=== PATIENT | male | born 1935 | race Caucasian/White ===

== ENCOUNTER 2017-04-20 15:28 | Emergency (ER) | payer OTHER, MEDICARE, BC ==
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
--- NOTE | 2017-04-20 16:34 | CT ---
Head CT Technique: Multiple axial sections through the brain were obtained. Intravenous contrast was not utilized. Comparison: No prior intracranial imaging. Findings: Ventricles along with basal cisterns and sulci over the convexities are moderately prominent. Mild diminished density is noted within the subcortical and periventricular white matter compatible with small vessel ischemic demyelination change. No evidence of intracranial hemorrhage is seen. No midline shift or mass effect is seen. Bone window settings were reviewed which shows mild mucosal thickening within the ethmoid sinuses. No acute calvarial abnormality is seen. Impression: 1. Senescent change as noted above. Minimal sinus findings which are felt to be incidental. 2. No acute intracranial abnormality is seen. No skull fracture is identified. Diagnostic code #2
--- NOTE | 2017-04-23 07:40 | CR ---
Left shoulder: Three views of the left shoulder were obtained. Comparison: No prior shoulder study. Joint space narrowing is noted within the acromioclavicular joint. Glenohumeral joint appears within normal limits. No acute fracture, dislocation or other bony abnormality is seen. Impression: 1. Slight degenerative change. No acute abnormality is identified on the left shoulder study. Diagnostic code #2
--- NOTE | 2017-04-23 07:40 | CR ---
Left femur: AP and lateral views of the left femur were obtained. Mild vascular calcification is seen. Joint space within the left hip is preserved. Joint spaces within the left knee are preserved. Minimal osteophytes are noted off the medial and lateral tibia from the knee. Small osteophyte is noted off the medial femoral head. No acute fracture or other bony abnormality is seen. Impression: 1. Incidental findings as noted above. Nothing acute is appreciated on two-view left femur study. Diagnostic code #2
== END 2017-04-20 17:10 | disposition home or self-care (01) ==
LOC: JD.ED 15:28
DX: S43.102A Unspecified dislocation of left acromioclavicular joint, initial encounter (principal); E11.9 Type 2 diabetes mellitus without complications; Z79.84 Long term (current) use of oral hypoglycemic drugs; Z79.899 Other long term (current) drug therapy; Z87.891 Personal history of nicotine dependence; V53.6XXA Passenger in pick-up truck or van injured in collision with car, pick-up truck or van in traffic accident, initial encounter; Y92.415 Exit ramp or entrance ramp of street or highway as the place of occurrence of the external cause
CPT/HCPCS: 70450; 70450-26; 73030-26-LT; 73030-LT; 73552-26-LT; 73552-LT; 99283; 99285-25

== ENCOUNTER 2019-06-05 08:20 | Day surgery (SDC) | payer MEDICARE, OTHER ==
[~2019-06-05 08:20] MED LIST: Cefuroxime 10 MG/ML SYRINGE EYELF SCH; Lidocaine 1% PF 2 ML SDV INJECT SCH; Pilocarpine 4% Ophth Soln 15 ML Bot EYELF SCH
[2019-06-05] MEDS: Polymyxin B/Trimethoprim 10 ML Bottle EYELF SCH ×3 (08:54→10:41)
[2019-06-05] MEDS: Brimonidine 0.2% Ophth Soln 5 ML Bottle EYELF SCH ×3 (09:00→10:41)
[2019-06-05] MEDS: Phenylephrine 2.5% Ophth Soln 2 ML Bot EYELF SCH ×5 (09:05→10:23)
--- NOTE | 2019-06-05 09:06 | PCM.PREANE ---
Preanesthetic Assessment - Anesthesia/Transfusion/Family Hx Anesthesia History: Prior Anesthesia Without Reaction Family History of Anesthesia Reaction: No Transfusion History: No Prior Transfusion(s) - Review of Systems General: No Symptoms Pulmonary: No Symptoms Cardiovascular: No Symptoms Gastrointestinal: No Symptoms Neurological: No Symptoms Other: Reports: None - Physical Assessment NPO Status Date: 06/04/19 NPO Status Time: 18:00 ASA Class: 2 Mental Status: Alert & Oriented x3 Airway Class: Mallampati = 1 Dentition: Reports: Missing Tooth/Teeth Thyro-Mental Finger Breadths: 3 Mouth Opening Finger Breadths: 3 ROM/Head Extension: Full Lungs: Clear to Auscultation, Normal Respiratory Effort, Decreased Breath Sounds (RLL slightly decreased) - Allergies Allergies/Adverse Reactions: Allergies Allergy/AdvReac Type Severity Reaction Status Date / Time No Known Allergies Allergy Verified 06/04/19 16:47 - Acknowledgements Anesthesia Type Planned: MAC Pt an Appropriate Candidate for the Planned Anesthesia: Yes Alternatives and Risks of Anesthesia Discussed w Pt/Guardian: Yes Pt/Guardian Understands and Agrees with Anesthesia Plan: Yes PreAnesthesia Questionnaire HEENT History: Reports: Cataract Cardiovascular History: Reports: CAD, High Cholesterol, Hypertension, [place], SOB on Exertion Respiratory History: Reports: None, Other (See Below) Gastrointestinal History: Reports: GERD Genitourinary History: Reports: None Musculoskeletal History: Reports: Arthritis Neurological History: Reports: None Endocrine/Metabolic History: Reports: Diabetes, Type II, Other (See Below) Other Endocrine/Metabolic History: neuropathy - Past Surgical History HEENT Surgical History: Reports: Other (See Below) (nose) GI Surgical History: Reports: Hernia, Inguinal - SUBSTANCE USE Smoking Status *Q: Former Smoker - HOME MEDS Home Medications: Home Meds Gabapentin [Neurontin] 300 mg PO QID 04/20/17 [History] Omeprazole 20 mg PO BID 04/20/17 [History] Propranolol [Inderal] 20 mg PO TID 04/20/17 [History] Simvastatin [Zocor] 20 mg PO DAILY 04/20/17 [History] glipiZIDE [Glucotrol] 5 mg PO BID 04/20/17 [History] metFORMIN [Glucophage XR] 500 mg PO BID 04/20/17 [History] lisinopriL [Lisinopril] 10 mg PO DAILY 06/04/19 [History] - CURRENT (IN HOUSE) MEDS Current Meds: Current Medications Brimonidine Tartrate (Alphagan 0.2% Ophth Soln) 0 ml EYELF ASDIRECTED TIMI Stop: 06/05/19 18:00 Last Admin: 06/05/19 09:00 Dose: 1 drop Cefuroxime Sodium (Zinacef) 0 mg EYELF ASDIRECTED TIMI Stop: 06/05/19 18:00 Lidocaine HCl (Xylocaine-Mpf 1%) 0 ml INJECT ASDIRECTED TIMI Stop: 06/05/19 18:00 Phenylephrine HCl (Riley-Synephrine 2.5% Ophth Soln) 0 ml EYELF ASDIRECTED TIMI Stop: 06/05/19 18:00 Pilocarpine HCl (Pilocar 4% Ophth Soln) 0 ml EYELF ASDIRECTED TIMI Stop: 06/05/19 18:00 Polymyxin/Trimethoprim Sulfate (Polytrim Ophth Soln) 0 ml EYELF ASDIRECTED TIMI Stop: 06/05/19 18:00 Last Admin: 06/05/19 08:54 Dose: 1 drop Tetracaine HCl (Tetracaine 0.5% Steri-Unit Robyn) 0 ml EYELF ASDIRECTED TIMI Stop: 06/05/19 18:00 Tropicamide (Mydriacyl 1% Ophth Soln) 0 ml EYELF ASDIRECTED TIMI Stop: 06/05/19 18:00
[2019-06-05] MEDS: Tropicamide 1% Ophth Soln 15 ML Bottle EYELF SCH ×4 (09:10→09:57)
[2019-06-05] MEDS: Tetracaine HCl/PF 0.5% 4 ML Bottle EYELF SCH ×2 (10:13→10:29)
--- NOTE | 2019-06-05 10:44 | PCM48HPAN ---
Post Anesthesia Note - EVALUATION WITHIN 48HRS OF ANESTHETIC Vital Signs in Normal Range: Yes Patient Participated in Evaluation: Yes Respiratory Function Stable: Yes Airway Patent: Yes Cardiovascular Function Stable: Yes Hydration Status Stable: Yes Pain Control Satisfactory: Yes Nausea and Vomiting Control Satisfactory: Yes Mental Status Recovered: Yes Vital Signs: Last Vital Signs Temp 36.8 C 06/05/19 08:45 Pulse 55 L 06/05/19 08:45 Resp 16 06/05/19 08:45 BP 177/78 H 06/05/19 08:45 Pulse Ox 96 06/05/19 08:45
== END 2019-06-05 10:54 | disposition home or self-care (01) ==
LOC: JD.SDS 08:20
PROVIDERS: ATTEND Ophthalmology
DX: E11.36 Type 2 diabetes mellitus with diabetic cataract (principal); H25.813 Combined forms of age-related cataract, bilateral; H02.834 Dermatochalasis of left upper eyelid; H02.831 Dermatochalasis of right upper eyelid; H16.223 Keratoconjunctivitis sicca, not specified as Sjogren's, bilateral; H16.103 Unspecified superficial keratitis, bilateral; E78.00 Pure hypercholesterolemia, unspecified; I10 Essential (primary) hypertension; Z87.891 Personal history of nicotine dependence
CPT/HCPCS: 66984; J0697; J2001; C1780

== ENCOUNTER 2019-08-05 08:26 | Day surgery (SDC) | payer MEDICARE, OTHER ==
[~2019-08-05 08:26] MED LIST changes: -Cefuroxime 10 MG/ML SYRINGE EYELF SCH; +Cefuroxime 10 MG/ML SYRINGE EYERT SCH; -Pilocarpine 4% Ophth Soln 15 ML Bot EYELF SCH; +Pilocarpine 4% Ophth Soln 15 ML Bot EYERT SCH
[2019-08-05] MEDS: Polymyxin B/Trimethoprim 10 ML Bottle EYERT SCH ×4 (09:08→10:52)
[2019-08-05] MEDS: Brimonidine 0.2% Ophth Soln 5 ML Bottle EYERT SCH ×3 (09:15→10:52)
--- NOTE | 2019-08-05 09:21 | PCM.PREANE ---
Preanesthetic Assessment - Anesthesia/Transfusion/Family Hx Anesthesia History: Prior Anesthesia Without Reaction Transfusion History: No Prior Transfusion(s) - Review of Systems General: No Symptoms Pulmonary: No Symptoms Cardiovascular: No Symptoms Gastrointestinal: No Symptoms Neurological: No Symptoms Other: Reports: None - Physical Assessment NPO Status Date: 08/04/19 NPO Status Time: 18:00 Vital Signs: Last Vital Signs Temp 98.2 F 08/05/19 09:00 Pulse 56 L 08/05/19 09:00 Resp 16 08/05/19 09:00 BP 152/74 H 08/05/19 09:00 Pulse Ox 96 08/05/19 09:00 Height: 1.68 m Weight: 64.41 kg ASA Class: 2 Mental Status: Alert & Oriented x3 Airway Class: Mallampati = 1 Dentition: Reports: Edentulous Thyro-Mental Finger Breadths: 3 Mouth Opening Finger Breadths: 3 ROM/Head Extension: Full Lungs: Clear to Auscultation, Normal Respiratory Effort Cardiovascular: Regular Rate, Regular Rhythm - Allergies Allergies/Adverse Reactions: Allergies Allergy/AdvReac Type Severity Reaction Status Date / Time No Known Allergies Allergy Verified 06/04/19 16:47 - Acknowledgements Anesthesia Type Planned: MAC Pt an Appropriate Candidate for the Planned Anesthesia: Yes Alternatives and Risks of Anesthesia Discussed w Pt/Guardian: Yes Pt/Guardian Understands and Agrees with Anesthesia Plan: Yes PreAnesthesia Questionnaire HEENT History: Reports: Cataract, Hard of Hearing (hearing aids) Cardiovascular History: Reports: CAD, High Cholesterol, Hypertension, [place], SOB on Exertion Respiratory History: Reports: None, Other (See Below) Gastrointestinal History: Reports: GERD Genitourinary History: Reports: None Musculoskeletal History: Reports: Arthritis Neurological History: Reports: None Endocrine/Metabolic History: Reports: Diabetes, Type II, Other (See Below) Other Endocrine/Metabolic History: neuropathy - Past Surgical History HEENT Surgical History: Reports: Other (See Below) (nose) GI Surgical History: Reports: Hernia, Inguinal - HOME MEDS Home Medications: Home Meds Gabapentin [Neurontin] 600 mg PO QAM 04/20/17 [History] Omeprazole 20 mg PO BID 04/20/17 [History] Propranolol [Inderal] 20 mg PO TID 04/20/17 [History] Simvastatin [Zocor] 20 mg PO DAILY 04/20/17 [History] metFORMIN [Glucophage XR] 1,000 mg PO BID 04/20/17 [History] Aspirin [Halfprin] 81 mg PO DAILY 08/04/19 [History] Cholecalciferol (Vitamin D3) [Vitamin D3] 5,000 unit PO DAILY 08/04/19 [History] Ferrous Sulfate [Iron] 325 mg PO DAILY 08/04/19 [History] Fish Oil/[place]-3 Fatty Acids [Fish Oil 1,000 MG] 1 gm PO Q48H 08/04/19 [History] Gabapentin [Neurontin] 300 mg PO 1200 08/04/19 [History] Gabapentin [Neurontin] 300 mg PO BEDTIME 08/04/19 [History] Losartan [Cozaar] 25 mg PO DAILY 08/04/19 [History] Multivitamin [Daily Sabina] 1 tab PO DAILY 08/04/19 [History] glipiZIDE [Glucotrol] 5 mg PO BID 08/04/19 [History] - CURRENT (IN HOUSE) MEDS Current Meds: Current Medications Brimonidine Tartrate (Alphagan 0.2% Ophth Soln) 0 ml EYERT ASDIRECTED TIMI Stop: 08/05/19 18:00 Last Admin: 08/05/19 09:15 Dose: 1 drop Cefuroxime Sodium (Zinacef) 0 mg EYERT ASDIRECTED TIMI Stop: 08/05/19 18:00 Lidocaine HCl (Xylocaine-Mpf 1%) 1 ml INJECT ASDIRECTED TIMI Stop: 08/05/19 18:00 Phenylephrine HCl (Riley-Synephrine 2.5% Ophth Soln) 0 ml EYERT ASDIRECTED TIMI Stop: 08/05/19 18:00 Pilocarpine HCl (Pilocar 4% Ophth Soln) 0 ml EYERT ASDIRECTED TIMI Stop: 08/05/19 18:00 Polymyxin/Trimethoprim Sulfate (Polytrim Ophth Soln) 0 ml EYERT ASDIRECTED TIMI Stop: 08/05/19 18:00 Last Admin: 08/05/19 09:08 Dose: 1 drop Tetracaine HCl (Tetracaine 0.5% Steri-Unit Robyn) 0 ml EYERT ASDIRECTED TIMI Stop: 08/05/19 18:00 Tropicamide (Mydriacyl 1% Ophth Soln) 0 ml EYERT ASDIRECTED TIMI Stop: 08/05/19 18:00
[2019-08-05] MEDS: Tropicamide 1% Ophth Soln 15 ML Bottle EYERT SCH ×4 (09:25→10:18)
[2019-08-05] MEDS: Phenylephrine 2.5% Ophth Soln 2 ML Bot EYERT SCH ×5 (09:26→10:28)
[2019-08-05] MEDS: Tetracaine HCl/PF 0.5% 4 ML Bottle EYERT SCH ×2 (10:23→10:38)
--- NOTE | 2019-08-05 11:15 | PCM48HPAN ---
Post Anesthesia Note - EVALUATION WITHIN 48HRS OF ANESTHETIC Vital Signs in Normal Range: Yes Patient Participated in Evaluation: Yes Respiratory Function Stable: Yes Airway Patent: Yes Cardiovascular Function Stable: Yes Hydration Status Stable: Yes Pain Control Satisfactory: Yes Nausea and Vomiting Control Satisfactory: Yes Mental Status Recovered: Yes Vital Signs: Last Vital Signs Temp 98.8 F 08/05/19 10:56 Pulse 53 L 08/05/19 10:56 Resp 20 08/05/19 10:56 BP 133/62 08/05/19 10:56 Pulse Ox 96 08/05/19 10:56
== END 2019-08-05 11:02 | disposition home or self-care (01) ==
LOC: JD.SDS 08:26
PROVIDERS: ATTEND Ophthalmology
DX: E11.36 Type 2 diabetes mellitus with diabetic cataract (principal); H25.811 Combined forms of age-related cataract, right eye; H16.103 Unspecified superficial keratitis, bilateral; H16.223 Keratoconjunctivitis sicca, not specified as Sjogren's, bilateral; I25.10 Atherosclerotic heart disease of native coronary artery without angina pectoris; M19.90 Unspecified osteoarthritis, unspecified site; E78.00 Pure hypercholesterolemia, unspecified; I10 Essential (primary) hypertension; K21.9 Gastro-esophageal reflux disease without esophagitis; Z98.42 Cataract extraction status, left eye; Z96.1 Presence of intraocular lens; Z87.891 Personal history of nicotine dependence; Z79.82 Long term (current) use of aspirin; Z79.84 Long term (current) use of oral hypoglycemic drugs; Z79.899 Other long term (current) drug therapy
CPT/HCPCS: 66984; J0697; J2001; C1780